=== PATIENT | female | born 1965 | race Caucasian/White ===

== ENCOUNTER 2018-12-16 18:11 | Emergency (ER) | payer MEDICAID ==
[~2018-12-16] VITALS: Ht 157.5 cm; Wt 66.7 kg
[2018-12-16 18:21] VITALS: Ht 157.5 cm; Wt 66.7 kg
[2018-12-16 20:07] LABS: BASOPHIL % 1.5 % (0-2); PLATELET COUNT 321 x10^3mcL (130-400); RED CELL DISTRIBUTION WIDTH 13.6 % (11.5-14.5)
[2018-12-16 20:15] LABS: CALCIUM 9.7 mg/dL (8.5-10.1); CARBON DIOXIDE 24.5 mmol/L (21-32); CHLORIDE SERUM 106 mmol/L (98-107); CREATININE SERUM 0.6 mg/dL (0.6-1.0); GFR1 > 60 mL/min; GLUCOSE SERUM 95 mg/dL (74-106); POTASSIUM SERUM 4.1 mmol/L (3.5-5.1); SODIUM SERUM 141 mmol/L (136-145)
[2018-12-16 23:00] LABS: microscopic required? YES; urine erythrocyte NEGATIVE (NEGATIVE)
[2018-12-17 01:26] VITALS: BP 131/72
== END 2018-12-17 01:26 | disposition home or self-care (01) ==
LOC: ED 18:11
PROVIDERS: Emergency Medicine
DX: R59.1 Generalized enlarged lymph nodes (principal); N39.0 Urinary tract infection, site not specified; R74.8 Abnormal levels of other serum enzymes
CPT/HCPCS: 36415; J7030; Q0092

== ENCOUNTER 2019-01-26 10:14 | Inpatient (IN) | payer MEDICAID ==
[~2019-01-26] VITALS: Ht 157.5 cm; Wt 71.2 kg
[2019-01-26 10:20] VITALS: Ht 157.5 cm; Wt 71.2 kg
--- NOTE | 2019-01-26 10:25 | NUR ---
PATIENT AAOX4 PRESENTS TO THE ED WITH C/O EPIGASTRIC PAIN THAT STARTED AT 0300. PT STS "KALYAN HAD THIS PAIN BEFORE BUT IT WENT AWAY, AND THIS TIME IT DIDN'T". PT ABD SOFT, NON DISTENDED, TENDER ON PALPATION. BREATHING E/U, SKIN WARM, DRY AND INTACT. WILL CONTINUE TO MONITOR.
--- NOTE | 2019-01-26 11:14 | NUR ---
EKG IN PROGRESS. PT MEDICATED PER MD ORDERS SEE EMAR
--- NOTE | 2019-01-26 11:23 | NUR ---
pt unable to provide urine sampel at this time.
--- NOTE | 2019-01-26 11:27 | NUR ---
warm blanket provided per pts request. primary rn terrance resuming care of pt
[2019-01-26 11:28] LABS: PLATELET COUNT 343 x10^3mcL (130-400); RED CELL DISTRIBUTION WIDTH 13.3 % (11.5-14.5)
--- NOTE | 2019-01-26 11:36 | NUR ---
PATIENT TAKEN FOR CT SCAN. VSS, WILL CONTINUE TO MONITOR
[2019-01-26 11:47] LABS: CALCIUM 9.7 mg/dL (8.5-10.1); CARBON DIOXIDE 26.9 mmol/L (21-32); CHLORIDE SERUM 103 mmol/L (98-107); CREATININE SERUM 0.6 mg/dL (0.6-1.0); GFR1 > 60 mL/min; GLUCOSE SERUM 112 mg/dL (74-106); POTASSIUM SERUM 3.9 mmol/L (3.5-5.1); SODIUM SERUM 141 mmol/L (136-145)
[2019-01-26 11:51] LABS: ALBUMIN 4.2 g/dL (3.4-5.0); ALKALINE PHOSPHATASE 101 U/L (46-116); ALT/SGPT 29 U/L (14-59); AST/SGOT 9 U/L (15-37); BILIRUBIN TOTAL 0.63 mg/dL (0.20-1.00); LIPASE 102 IU/L (73-393); TOTAL PROTEIN, SERUM 7.5 g/dL (6.4-8.2)
--- NOTE | 2019-01-26 11:54 | NUR ---
PATIENT BACK FROM CT. VSS, WILL CONTINUE TO MONITOR. NO SS OF DISTRSS NOTED.
[2019-01-26 12:20] LABS: BAND NEUTROPHIL 0 % (0-10); BASOPHIL 0 % (0-2); MONOCYTE 3 % (0-7); SEGMENTED NEUTROPHILS 94 % (37-75)
[2019-01-26 12:21] LABS: PLATELET MORPHOLOGY PLATELETS INCREASED; rbc morphology (normal/abnorm) ABNORMAL (NORMAL)
--- NOTE | 2019-01-26 13:06 | NUR ---
SENT URINE TO LAB PER MD ORDERS
[2019-01-26 13:40] LABS: UA SPECIFIC GRAVITY 1.015 (1.005-1.035)
[2019-01-26 13:41] LABS: microscopic required? YES; urine erythrocyte 1+ (NEGATIVE)
--- NOTE | 2019-01-26 13:44 | NUR ---
ADDITIONAL FLUIDS ORDERED BY DR GUTIERREZ, SEE MEDICATION ADMINISTRATION RECORD.
[2019-01-26 13:49] LABS: AMPHETAMINE QUAL UR NONE DETECTED (See below)
--- NOTE | 2019-01-26 14:22 | NUR ---
REPORT GIVEN TO FRANKI DELGADILLOCANDY DIPPER FOR CONTINUED CARE OF PATIENT. VSS PRIOR TO TRANSFER, NAD NOTED.
[2019-01-26 14:23] LABS: PHOSPHOROUS 3.9 mg/dL (2.5-4.9)
[2019-01-26 14:55] VITALS: BP 137/57
--- NOTE | 2019-01-26 15:34 | NUR ---
PATIENT IN BED AT THIS TIME. DAUGHTER AT BEDSIDE. EXPLAINED FURTHER TO PATIENT PATIENT CONDITION, SURGICAL PROCEDURE, AND POST OP CARE. ALL QUESTIONS ANSWERED. EDUCATIONAL HANDOUTS GIVEN TO PATIENT. CLINICAL MASSAGE THERAPIST EVA CALLED, PATIENT READY FOR PROCEDURE AT 1615, CONSENTS SIGNED AND OBTAINED. CHLORHEXIDINE WIPES APPLIED. CALL LIGHT IN REACH.
[2019-01-26 16:10] VITALS: BP 153/75
--- NOTE | 2019-01-26 18:36 | NUR ---
PATIENT RETURNED TO FLOOR. STATES ABDOMEN IS SORE, NO OTHER COMPLAINTS OF PAIN. REINSTRUCTED PATIENT ON POST OP COMPLICATIONS, PATIENT AND DAUGHTER VERBALIZE UNDERSTANDING. WILL ENDORSE TO ONCOMING NURSE. CALL LIGHT IN REACH.
--- NOTE | 2019-01-26 19:54 | NUR ---
PT RECIEVED AAO REG RESP NO SOB,ABDO IS SOFT WITH ACTIVE BOWEL SOUNDS WITH DRESSING INTACT,IV INFUSING WELL WITH THE SITE PATENT AND INTACT,NO PAIN REPORTED AT THIS TIME,HOB,PT BEING ENCOURAGE TO AMBULATE,KEPT CLEAN AND DRY TO TOUCH,MADE COMFORTABLE IN BED AND WILL CONTINUE TO MONITOR.
[2019-01-26 20:51] VITALS: BP 123/55
--- NOTE | 2019-01-26 22:32 | NUR ---
PT WITH C/O OF H/A ARCHING IN NATURE AT THE SCALE OF 10/25,PT WAS MEDICATED WITH TYLENOL 650 MG PO ORDER,ALSO PT SAYS SHE IS BURPING BUT NO PASSING GAS YET,WILL CONTINUE TO MONITOR.
[2019-01-27 05:44] VITALS: BP 108/47
--- NOTE | 2019-01-27 05:58 | NUR ---
PT HAD A RESTING NIGHT DTILL BURLPING NO PASSING GAS YET,DRESSING TO THE ABDO IS CDI AND ACTIVE BOWEL SOUNDS,PT BEING ENCOURAGE TO AMBULATE,NO CHANGE AT THIS TIME,WILL CONTINUE TO MONITIOR.
[2019-01-27 05:59] LABS: PLATELET COUNT 289 x10^3mcL (130-400); RED CELL DISTRIBUTION WIDTH 13.7 % (11.5-14.5)
[2019-01-27 06:55] LABS: CALCIUM 7.9 mg/dL (8.5-10.1); CARBON DIOXIDE 22.7 mmol/L (21-32); CHLORIDE SERUM 111 mmol/L (98-107); CREATININE SERUM 0.7 mg/dL (0.6-1.0); GFR1 > 60 mL/min; GLUCOSE SERUM 116 mg/dL (74-106); PHOSPHOROUS 3.9 mg/dL (2.5-4.9); POTASSIUM SERUM 4.1 mmol/L (3.5-5.1); SODIUM SERUM 144 mmol/L (136-145)
--- NOTE | 2019-01-27 07:10 | NUR ---
RECEIVED PT FROM [facility] PARALEGAL RN. Leslye/EDWARD4. MED SURG. DENIES CHEST PAIN/PRESSURE. RESPIRATIONS EQUAL AND UNLABORED ON RA. DENIES SOB. PT DENIES ANY N/V AT THIS TIME. PT STATES "KALYAN BEEN ABLE TO BURP. I JUST HAVE PASSED GAS." PT ENCOURAGED TO AMBULATE IN HALLWAYS TO HELP WITH PASSING GAS. PT VERBALIZED UNDERSTANDING. INCISIONS TO ABDOMEN X3 COVERED WITH BANDAIDS WITH MINIMAL DRIED BLOOD NOTED. PT STATES PAIN TO LLQ ABDOMEN IS 3/10 PRESSURE AND TOLERABLE AT THIS TIME. IV TO RAC PATENT AND INFUSING. NO REDNESS OR SWELLING NOTED. WILL CONTINUE TO MONITOR. CALL LIGHT IN REACH. BED IN LOWEST POSITION.
[2019-01-27 07:31] LABS: BASOPHIL % 0 % (0-2)
--- NOTE | 2019-01-27 08:55 | NUR ---
PT SITTING UP IN BED. NO ACUTE RESP DISTRESS NOTED ON RA. PT STATES "I WALKED AROUND MY ROOM. I AM TRYING TO WALK MORE TODAY." PT STATES PAIN TO LLQ ABDOMEN IS INCREASING 5/10 PRESSURE. MEDICATED PER EMAR. PT STATES "IN A LITTLE BIT I WILL TRY WALKING MORE AGAIN." IV PATENT AND INFUSING TO RAC. NO REDNESS OR SWELLING NOTED. PT DENIES ANY N/V OR PAIN AFTER EATING BREAKFAST. TOLERATED WELL. WILL CONTINUE TO MONITOR. CALL LIGHT IN REACH. BED IN LOWEST POSITION.
[2019-01-27 09:59] VITALS: BP 114/54
--- NOTE | 2019-01-27 10:13 | NUR ---
PT SITTING UP IN BED. PT STATES PAIN 3/10 TO LLQ ABDOMEN AND TOLERABLE AT THIS TIME. PT ASKING FOR ABDOMINAL BINDER. IDA PUGA STATES PT DOES NOT REQUIRE ABDOMINAL BINDER. PT MADE AWARE. PT STATES "I AM GOING TO TRY TO KEEP WALKING. I AM JUST WAITING FOR THE SURGEON." WILL CONTINUE TO MONITOR. CALL LIGHT IN REACH. BED IN LOWEST POSITION.
--- NOTE | 2019-01-27 12:09 | NUR ---
PT SITTING UP AT BEDSIDE. PT WALKED IN HALLWAY. PT TOLERATED WELL. PT STATES "I WAS ABLE TO PASS SOME GAS" PT STATES PAIN IS TOLERABLE AT THIS TIME TO ABDOMEN. PT STILL ANXIOUS ASKING IF SURGEON CLEARED HER TO GO HOME. IV ANTIBIOTICS INFUSING ORDERED. NO REDNESS OR SWELLING NOTED. WILL CONTINUE TO MONITOR. CALL LIGHT IN REACH. BED IN LOWEST POSITION.
--- NOTE | 2019-01-27 12:58 | NUR ---
SPOKE WITH DR. DRUMMOND PT IS OKAY FOR DISCHARGE.
[2019-01-27] MEDS ORDERED: BACTRIM DS1 TAB PO (13:33)
--- NOTE | 2019-01-27 13:42 | NUR ---
WOUND CARE NURSE MICKEY AT BEDSIDE. MICKEY CLEANING PT ABDOMINAL INCISIONS, AND PROVIDING PT WITH ABDOMINAL BINDER. PER MICKEY DOAN PT OKAY TO BE DISCHARGED HOME.
--- NOTE | 2019-01-27 13:45 | NUR ---
WOUND CARE EVALUATION NOTE: REASON FOR EVALUATION: ABDOMINAL SURGICAL WOUND S/P APPENDICITIS WOUND ASSESSMENT DONE TO THIS 53 Y/O FEMALE PT. WITH MULTIPLE SURGICAL WOUNDS. WOUND CARE TEACHING AND RECOMMENDATION DISCUSSED WITH PT. DAUGHTER AND PT. VERBALIZES UNDERSTANDING. POC DISCUSSED WITH PRIMARY RN AND VIVIEN PRIETO. INTEGUMENTARY: -S/P LAPAROSCOPIC APPENDECTOMY WITH IKE TO SUPRAPUBIC AREA X2 WOUND SITES DRY AND CLEAN WITH IKE INTACT, FEDE WOUND SKIN INTACK, NO S/S OF INFECTION ,NO S/S OF WOUND DEHISCENCE. -UMBILICUS AREA X1. DRY AND CLEAN WITH 3 IKE INTACT, FEDE WOUND SKIN INTACK, WOUND SITE MOIST WITH WEEPING SEROSANGINOUS DRAINAGE, NO ODOR, NO S/S INFECTION AND NO S/S OF WOUND DEHISCENCE. RECOMMENDATIONS: -KEEP SURGICAL AREAS DRY AND CLEAN -APPLY DRY BANDAGE TO IKE AREAS CHANGED NEEDED -APPLY ABDOMINAL BINDER DAILY WHEN CHANGE POSITION -PLEASE FOLLOW UP SURGEON 10-14 DAYS POST DISCHARGED EVALUATION FOR REMOVAL OF IKE
[2019-01-27 13:51] VITALS: BP 114/54
--- NOTE | 2019-01-27 15:43 | NUR ---
PT SITTING UP AT BEDSIDE. NO ACUTE RESP DISTRESS NOTED ON RA. PT GIVEN DISCHARGE INSTRUCTIONS. PT ENCOURAGED TO MAKE FOLLOW UP APPOINTMENT WITH PCP WITHIN ONE WEEK OF DISCHARGE. PT VERBALIZED UNDERSTANDING. PT PROVIDED WITH DR. CH NUMBER AND ENCOURAGED TO CALL TO MAKE A FOLLOW UP APPOINTMENT WITH DR. DRUMMOND WITHIN ONE WEEK. PT VERBALIZED UNDERSTANDING. PT ENCOURAGED TO MONITOR FOR ANY DRAINAGE OR BAD ORDER FROM INCISION SITE, FEVER, SOB OR SEVERE PAIN. PT VERBALIZED UNDERSTANDING. PT GIVEN PRESCRIPTION FOR BACTRIM PO BID FOR 7 DAYS. PT GIVEN EXCUSE FROM WORK FROM 01/26-02/01. IV TO RAC REMOVED CATHETER INTACT. NO REDNESS OR SWELLING NOTED. WOUND PHOTO TAKEN. PT TAKEN OFF FLOOR VIA WHEELCHAIR BY SLEEPING BAG FILLER. NO PROBLEMS ENCOUNTERED. ALL QUESTIONS AND CONCERNS ADDRESSED.
== END 2019-01-27 15:51 | disposition home or self-care (01) | DRG 233 ==
LOC: ED 10:14 → DU 12:57 → ED 12:57 → MU 13:31
PROVIDERS: Emergency Medicine; Surgery; ADMIT Internal Medicine
PROC: 0DTJ4ZZ Resection of Appendix, Percutaneous Endoscopic Approach (ICD-10-PCS; principal; 2019-01-26 15:00)
DX: K35.32 Acute appendicitis with perforation, localized peritonitis, and gangrene, without abscess (principal); F17.210 Nicotine dependence, cigarettes, uncomplicated; N39.0 Urinary tract infection, site not specified; Z68.28 Body mass index [BMI] 28.0-28.9, adult
CPT/HCPCS: G0378; J0330; J0694; J2175; J2250; J2270; J2405; J2543; J2704; J2710; J3010; J3490; J7030; J7120; Q0092